=== PATIENT | female | born 1950 | race Caucasian/White ===

== ENCOUNTER → 2017-03-13 | Outpatient (CLI) | payer MEDICARE, BC | LOC: BHSO 14:48 | DX: F33.1 Major depressive disorder, recurrent, moderate (principal) ==

== ENCOUNTER → 2017-03-19 | Outpatient (CLI) | payer MEDICARE, BC | LOC: MC.RAD 14:09 | DX: Z12.31 Encounter for screening mammogram for malignant neoplasm of breast (principal) ==

== ENCOUNTER → 2017-05-07 | Outpatient (CLI) | payer MEDICARE, BC | LOC: COL.PUL 09:36 | DX: R05 Cough (principal); F17.200 Nicotine dependence, unspecified, uncomplicated ==

== ENCOUNTER → 2017-06-04 | Outpatient (CLI) | payer MEDICARE, BC | LOC: BHSO 15:09 | DX: F41.1 Generalized anxiety disorder (principal) ==

== ENCOUNTER → 2017-10-17 | Outpatient (CLI) | payer MEDICARE, BC | LOC: BHSO 14:29 | DX: F41.1 Generalized anxiety disorder (principal) | CPT/HCPCS: G0463 ==

== ENCOUNTER → 2018-02-11 | Outpatient (CLI) | payer MEDICARE, BC | LOC: BHSO 14:46 | DX: F33.41 Major depressive disorder, recurrent, in partial remission (principal) | CPT/HCPCS: G0463 ==

== ENCOUNTER → 2018-08-06 | Outpatient (CLI) | payer MEDICARE, BC | LOC: BHSO 13:13 | DX: F33.42 Major depressive disorder, recurrent, in full remission (principal) | CPT/HCPCS: G0463 ==

== ENCOUNTER → 2018-10-23 | Outpatient (CLI) | payer MEDICARE, BC | LOC: MC.RAD 13:00 | DX: Z12.31 Encounter for screening mammogram for malignant neoplasm of breast (principal) ==

== ENCOUNTER → 2019-02-10 | Outpatient (CLI) | payer MEDICARE, BC | LOC: BHSO 14:39 | DX: F33.42 Major depressive disorder, recurrent, in full remission (principal) | CPT/HCPCS: G0463 ==

== ENCOUNTER → 2019-09-02 | Outpatient (CLI) | payer MEDICARE, BC | LOC: BHSO 13:32 | DX: F33.42 Major depressive disorder, recurrent, in full remission (principal) | CPT/HCPCS: G0463 ==

== ENCOUNTER → 2020-03-02 | Outpatient (CLI) | payer MEDICARE, BC | LOC: BHSO 13:56 | DX: F33.42 Major depressive disorder, recurrent, in full remission (principal) | CPT/HCPCS: G0463 ==

== ENCOUNTER → 2020-08-16 | Outpatient (CLI) | payer MEDICARE, BC | LOC: MC.RAD 12:52 | DX: Z12.31 Encounter for screening mammogram for malignant neoplasm of breast (principal) ==

== ENCOUNTER 2020-11-29 15:30 | Inpatient (IN) | payer MEDICARE, BC ==
[~2020-11-29] VITALS: Ht 160 cm; Wt 87.2 kg
[2020-11-29 15:58] LABS: BASO % 0.4 % (0.0-2.0); GRAN # 4.6 (1.4-6.5); GRAN % 62.6 % (42.2-75.2); HEMOGLOBIN 15.3 g/dl (12.5-16.0); LYMPH # 2.2 (1.2-3.4); LYMPH % 29.4 % (20.0-51.0); MEAN CELL VOLUME 90 fl (80.0-100.0); MEAN CORPUSCULAR HEMOGLOBIN 30 pg (27.0-31.0); MEAN CORPUSCULAR HGB CONC 33 g/dl (33.0-37.0); MEAN PLATELET VOLUME 11.2 fl (7.4-10.4); MONO # 0.5 (0.1-0.6); MONO % 7.3 % (1.7-9.3); PLATELET COUNT 189 K/mm3 (130-400); RED BLOOD COUNT 5.14 M/mm3 (4.10-5.30); REDCELL DISTRIBUTION WIDTH-CV 13.6 % (11.5-14.5)
[2020-11-29 16:04] LABS: INR 1.1 (0.8-3.0)
[2020-11-29 16:07] LABS: PARTIAL THROMBOPLASTIN TIME 33.1 SECONDS (26.0-37.0)
[2020-11-29 16:08] LABS: ALANINE AMINOTRANSFERASE 23 U/L (4-34); ALBUMIN 4.2 gm/dL (3.5-5.0); ALKALINE PHOSPHATASE 51 U/L (50-136); ANION GAP 8 mmol/L (7-16); AST,SGOT 28 U/L (15-37); BILIRUBIN,TOTAL 0.4 mg/dL (0.0-1.0); BLOOD UREA NITROGEN 12 mg/dL (7-17); CALCIUM 9.8 mg/dL (8.4-10.2); CARBON DIOXIDE 28 mmol/L (22-30); CHLORIDE 105 mmol/L (98-107); GLUCOSE 102 mg/dL (74-106); LIPASE 209 U/L (23-300); POTASSIUM 3.9 mmol/L (3.4-5.0); SODIUM 141 mmol/L (137-145); TOTAL PROTEIN 7.3 gm/dL (6.4-8.2)
[2020-11-29 16:20] LABS: TROPONIN-I < 0.012 ng/mL (0.000-0.035)
[2020-11-29] MEDS ORDERED: EFFEXOR 75M75 MG/TAB PO (20:51)
[2020-11-29] MEDS ORDERED: TAZTIA120 (20:52)
[2020-11-29 22:36] LABS: MAGNESIUM 2.1 mg/dL (1.6-2.3)
--- NOTE | 2020-11-29 22:56 | NUR ---
Received report from ED nurse
[2020-11-29] MEDS ORDERED: XANAX 0.5MG0.5 MG PO (23:05)
[2020-11-29 23:07] LABS: TSH w REFLEX 2.27 uIU/mL (0.465-4.680)
--- NOTE | 2020-11-29 23:48 | NUR ---
Patient arrives to ICU room 1 via ED stretcher. Patient is alert and oriented and able to ambulate to ICU bed with standby assistance. Patient is on room air. All initial vital signs within normal limits; patient denies any pain or discomfort. Patient arrives with cardizem infusing to a 20G peripheral in the left wrist at 10 mg/hr or 10 mL/hr. Patient's HR ranging 80-90s in afib. Patient is assisted to toilet with standby assistance. Ambulation tolerated well. Patient currently resting in bed. Bed in lowest position, call light within reach, and all alarms are on. No further needs noted at this time.
--- NOTE | 2020-11-29 23:48 | NUR ---
Patient's belongings include street clothes, a black purse with $170 duran, glasses, a ring, personal cellphone, and a watch she has inside her purse. Patient denies having dentures or hearing aides. Refuses hospital safe when offered.
[2020-11-29 23:56] VITALS: O2SAT 100
[2020-11-29 23:57] VITALS: O2SAT 100
[2020-11-29 23:58] VITALS: O2SAT 99
[2020-11-29 23:59] VITALS: O2SAT 98
[2020-11-30] VITALS (639 sets, daily range): BP systolic 114–152; BP diastolic 69–99; PULSE 57–94; TEMP 97.8–98.5; O2SAT 63–100
[2020-11-30] MEDS ORDERED: ASPIRIN 81M81 MG/TA2 PO (02:30)
[2020-11-30] MEDS ORDERED: EXCEDRIN1 TAB PO (02:30)
[2020-11-30 05:49] LABS: BASO % 0.5 % (0.0-2.0); EOS # 0.2 (0.0-0.7); EOS % 2.4 % (0-4.0); GRAN # 3.7 (1.4-6.5); GRAN % 57.9 % (42.2-75.2); HEMATOCRIT 40.3 % (37.0-47.0); LYMPH % 31.6 % (20.0-51.0); MEAN CELL VOLUME 91 fl (80.0-100.0); MEAN CORPUSCULAR HGB CONC 32 g/dl (33.0-37.0); MEAN PLATELET VOLUME 11.3 fl (7.4-10.4); MONO # 0.5 (0.1-0.6); MONO % 7.1 % (1.7-9.3); PLATELET COUNT 145 K/mm3 (130-400); RED BLOOD COUNT 4.41 M/mm3 (4.10-5.30); REDCELL DISTRIBUTION WIDTH-CV 13.8 % (11.5-14.5)
[2020-11-30 06:04] LABS: MEAN CORPUSCULAR HEMOGLOBIN 29 pg (27.0-31.0)
[2020-11-30 06:06] LABS: ALBUMIN 3.5 gm/dL (3.5-5.0); BILIRUBIN,TOTAL 0.3 mg/dL (0.0-1.0); CALCIUM 8.5 mg/dL (8.4-10.2); CREATININE, serum 0.81 (0.52-1.25); POTASSIUM 3.7 mmol/L (3.4-5.0); TOTAL PROTEIN 6.1 gm/dL (6.4-8.2)
--- NOTE | 2020-11-30 07:15 | NUR ---
Report given to ZACH Acharya.
--- NOTE | 2020-11-30 12:16 | NUR ---
First visit from the ornamental rail installer. No needs right now.
--- NOTE | 2020-11-30 18:16 | NUR ---
1133- TIMEOUT PERFORMED FOR JAMES AND CARDIOVERSION. DR. WEINBERG, HIRAL [place], PUBLIC HEALTH TRAINING ASSISTANT, RN AT BEDSIDE. Cardioversion successful with one shock at 200 Joules.
[2020-12-01] VITALS (543 sets, daily range): BP systolic 98–168; BP diastolic 76–110; PULSE 66–112; TEMP 97.4–98; O2SAT 76–99
--- NOTE | 2020-12-01 06:25 | NUR ---
Pt heart rhythm momentarily changing to A-Fib 110-130bpm after recent ambulation before reverting back to sinus bradycardia/sinus rhythm
[2020-12-01 06:44] LABS: BASO % 0.5 % (0.0-2.0); GRAN % 67.3 % (42.2-75.2); HEMATOCRIT 40.7 % (37.0-47.0); HEMOGLOBIN 12.9 g/dl (12.5-16.0); LYMPH # 1.4 (1.2-3.4); LYMPH % 23.7 % (20.0-51.0); MEAN CELL VOLUME 94 fl (80.0-100.0); MEAN CORPUSCULAR HEMOGLOBIN 30 pg (27.0-31.0); MEAN CORPUSCULAR HGB CONC 32 g/dl (33.0-37.0); MEAN PLATELET VOLUME 11.3 fl (7.4-10.4); MONO # 0.5 (0.1-0.6); MONO % 8.2 % (1.7-9.3); PLATELET COUNT 144 K/mm3 (130-400); RED BLOOD COUNT 4.31 M/mm3 (4.10-5.30); REDCELL DISTRIBUTION WIDTH-CV 13.8 % (11.5-14.5)
[2020-12-01 06:58] LABS: CALCIUM 8.5 mg/dL (8.4-10.2); CREATININE, serum 0.8 (0.52-1.25); POTASSIUM 4.2 mmol/L (3.4-5.0)
--- NOTE | 2020-12-01 07:00 | NUR ---
Report received from ZACH Mejia. Patient currently sleeping. Will continue to monitor.
--- NOTE | 2020-12-01 10:27 | NUR ---
Hop Separator attended clinical rounds with the team. After rounds, SW met with the patient to complete intake. The patient lives independently in [place]. Her son Mark lives with her. The patient has a cane and walker but does not use them. The patient's PCP is Dr. Stanley and patient receives medications [facility] with no difficulties. The patient does not have advanced directives in the EMR but states they are complete and Dr. Stanley has a copy. The patient plans to return home at discharge. HELGA contacted Celestina Lozoya with [employer]. She confirmed that the patient does have advanced directives on file and will fax them to this SW.
--- NOTE | 2020-12-01 11:11 | NUR ---
Test Department Helper received durable power of research attorney for healthcare decisions and a living will declaration for the patient. The DPOAs for healthcare designate her daughter Ericka and her son Mark. The paperwork was placed in the patient's chart.
--- NOTE | 2020-12-01 14:00 | NUR ---
Dr. Rocha called to see if patient can get cleared for discharge. He is upset and states "Who told her she could go home?!" I respond by saying that has been the understanding between the hospitalist and nurses since just after the cardioversion. Dr. Rocha goes in to meet with the patient and informs her that he will be starting some new medications for her low EF and cardiomyopathy and wants to keep her for a couple more days for monitoring. The patient becomes upset and tearful, but agrees to stay. New medication orders received.
--- NOTE | 2020-12-01 14:30 | NUR ---
Dr. Almaguer updated about the plan of care from Dr. Rocha .
--- NOTE | 2020-12-01 16:00 | NUR ---
Report called to ZACH Alberto on medical floor. Patient just went into Afib RVR. Will obtain EKG and call Dr. Rocha for further direction.
--- NOTE | 2020-12-01 16:30 | NUR ---
Dr. Rocha called because patient has gone into AFib RVR. Orders received for IV amio bolus followed by the drip protocol. Patient placed back in IMCU status and transfer to the floor cancelled.
--- NOTE | 2020-12-01 20:45 | NUR ---
Notified by telemetry that patient had a pause on her telemetry reading. When in to check on patient. Patient was lying in bed awake. HR currenlty in the low 100's. When asked how she was feeling patient stated that a few moments ago she felt "funny" but was unable to be more specific. Patient did say she has been anxious and feels the news channel she was watching was upsetting her. Requested her prn xanax to be given. VS currently stable. Obtained EKG which showed A-fib. Dr. Rocha notified instructed to just continue to monitor at this time.
--- NOTE | 2020-12-01 23:05 | NUR ---
Patient noted to have several pauses on telemetry. Nurse at bedside and patient alert and oriented and denies any symptoms. After several pauses HR bradycardic in the 40's and appears to be SR. EKG obtained to confirm. EKG shows A-fib with slow ventricular response. Dena physician called and faxed EKG over for verification. Dr Rocha was also notified of rhythm and rate change. Ok to continue with amiodarone drip per protocol with bradycardia as long as patient's BP is stable and patient is asymptomatic. Will continue to monitor.
[2020-12-02] VITALS (612 sets, daily range): BP systolic 92–125; BP diastolic 56–92; PULSE 53–121; TEMP 97.7–98; O2SAT 75–100
[2020-12-02 05:39] LABS: BASO % 0.3 % (0.0-2.0); GRAN # 5.4 (1.4-6.5); GRAN % 73.1 % (42.2-75.2); HEMATOCRIT 40.2 % (37.0-47.0); HEMOGLOBIN 13.2 g/dl (12.5-16.0); LYMPH # 1.4 (1.2-3.4); LYMPH % 18.8 % (20.0-51.0); MEAN CELL VOLUME 91 fl (80.0-100.0); MEAN CORPUSCULAR HEMOGLOBIN 30 pg (27.0-31.0); MEAN CORPUSCULAR HGB CONC 33 g/dl (33.0-37.0); MONO # 0.6 (0.1-0.6); MONO % 7.5 % (1.7-9.3); PLATELET COUNT 146 K/mm3 (130-400); REDCELL DISTRIBUTION WIDTH-CV 13.8 % (11.5-14.5)
[2020-12-02 05:51] LABS: CALCIUM 8.3 mg/dL (8.4-10.2); CREATININE, serum 0.8 (0.52-1.25); POTASSIUM 4.2 mmol/L (3.4-5.0)
--- NOTE | 2020-12-02 08:00 | NUR ---
Report recieved from overnight RN, all questions answered. Patient found awake alert in bed resting. Oxygen in place at 2L via NC. Denies any pain or discomfort. Report from monitoring that patient HR is dropping into 30's. Sustaining in 50's at this time. Patient denies feeling off or dizzy during that time. Lung sounds diminished, bowel sounds active. Dr. Rocha made aware of HR, states she may have coreg with morning medications. Per MD may resume diet and come off NPO. All safety maintained, call giraldo within reach. Will continue to monitor.
--- NOTE | 2020-12-02 08:35 | NUR ---
Dr. Rocha called to inform of increased heart rate of 113 afib. Also made aware of increased BP. No new orders recieved. Will continue to monitor.
--- NOTE | 2020-12-02 09:43 | NUR ---
NOTED PT WAS IN AFIB 120s AND AT 0941) TELEMETRY TOLD RN THAT PT IS SHOWING ASYSTOLE. BY THE TIME RN AND MARKIE, RN ENTERED ROOM, MONITOR SHOWED HR 29. PT AROUSES STARTLED WHEN SPOKEN TO. HR INCREASES BACK INTO AFIB 100-120s. [address] BLANCHARD OF INCIDENT. PHYSICIAN STATES TO STOP AMIO GTT AT THIS TIME AND WILL BE BY SHORTLY TO SEE PT TO DISCUSS POC.
--- NOTE | 2020-12-02 09:59 | NUR ---
Steam Pipe Fitter at bedside speaking with patient. States patient will need to go for a pacemaker this afternoon. Patient has maintained NPO status. Will conitnue to monitor.
--- NOTE | 2020-12-02 11:30 | NUR ---
Choir Member attended clinical rounds with the team. The patient will have a pacemaker placed this day.
--- NOTE | 2020-12-02 13:57 | NUR ---
Patient brought back from bundle tier and labeler via bed. Placed on monitors, HR elevated afib. Pacemaker placed to left chest. Bandage clean dry intact. Left arm in sling. Patient denies pain or nausea. Amiodarone drip restarted per MD orders. Infusing without difficulty. Patient states she is thirsty and would also like a meal tray for lunch. Will continue to monitor.
--- NOTE | 2020-12-02 20:00 | NUR ---
Patient alert and watching TV. Denies any shortness of breath. Reports very mild tenderness around the pacemaker incision site. Site clean, dry and intact. Patient freqently moving arm in and out of arm sling. Reminded to try to keep arm as still as possible to prevent any dislodging of pacer wires. Denies any other needs or complaints at this time. Will continue to monitor.
[2020-12-03] VITALS (431 sets, daily range): BP systolic 90–116; BP diastolic 52–90; PULSE 60–123; TEMP 97.4–98; O2SAT 75–100
[2020-12-03 05:49] LABS: BASO % 0.5 % (0.0-2.0); GRAN # 5.8 (1.4-6.5); GRAN % 70.1 % (42.2-75.2); HEMATOCRIT 42.7 % (37.0-47.0); HEMOGLOBIN 14.1 g/dl (12.5-16.0); LYMPH # 1.7 (1.2-3.4); LYMPH % 20.9 % (20.0-51.0); MEAN CELL VOLUME 91 fl (80.0-100.0); MEAN CORPUSCULAR HEMOGLOBIN 30 pg (27.0-31.0); MEAN CORPUSCULAR HGB CONC 33 g/dl (33.0-37.0); MEAN PLATELET VOLUME 11.5 fl (7.4-10.4); MONO # 0.7 (0.1-0.6); MONO % 8.3 % (1.7-9.3); PLATELET COUNT 149 K/mm3 (130-400); RED BLOOD COUNT 4.71 M/mm3 (4.10-5.30); REDCELL DISTRIBUTION WIDTH-CV 13.8 % (11.5-14.5)
[2020-12-03 06:02] LABS: CALCIUM 8.5 mg/dL (8.4-10.2); CREATININE, serum 0.89 (0.52-1.25); POTASSIUM 3.8 mmol/L (3.4-5.0)
--- NOTE | 2020-12-03 09:01 | NUR ---
PT is resting in bed this morning and states she is tired. Pt has no other complaints. Heart is showing A fib, bouncing from 90-110s. PT takes morning pills with water with no issue. Lungs are clear. PT has call light will call with needs.
--- NOTE | 2020-12-03 16:02 | NUR ---
PT moved to room 319 via wheelchair without incident. PT helped to bed by ZACH Mendoza who has assumed care at this time.
--- NOTE | 2020-12-03 18:09 | NUR ---
Pt arrived to the floor into room 318, she is A/O x4. She is up independently in the room. Denies pain. LUE restrictions reviewed with patient. Educated patient on medications, handouts given. HR irregular, Lungs CTA. No edema present. LFA IV intact. Call light within reach.
[2020-12-04 04:28] VITALS: BP 90/47; PULSE 60; TEMP 98.2
[2020-12-04 08:35] VITALS: BP 105/50; PULSE 60; TEMP 97.7
--- NOTE | 2020-12-04 09:45 | NUR ---
Pt assessment complete. Pt is sitting up in chair. She is A/O x4. Her breathing is even and unlabored on RA, does get SOB on exertion. She denies any pain. Site to L chest CDI, no hematoma visualized. LUE restrictions reviewed with patient. Educated on the side effects of afib and infection. No further needs. Call light within reach.
[2020-12-04] MEDS ORDERED: CEPHALEXIN500 M1 PO (09:50)
[2020-12-04] MEDS ORDERED: COREG 6.256.25 MG/TA PO (09:51)
[2020-12-04] MEDS ORDERED: CORDARONE200 MG/TAB PO (09:51)
[2020-12-04] MEDS ORDERED: ENTRESTO 24 MG1 EACH PO (09:51)
[2020-12-04] MEDS ORDERED: ELIQUIS 5MG PO (09:51)
[2020-12-04] MEDS ORDERED: LASIX 20MG TABL20 MG PO (09:52)
--- NOTE | 2020-12-04 11:35 | NUR ---
Discharge paperwork and instructions reviewed with patient. All questions answered at this time. IV removed by student. Pt wheeled out of facility at this time.
== END 2020-12-04 11:35 | disposition home or self-care (01) | DRG 243 ==
LOC: COL.ER 15:30 → ICU 19:08 → COL.ER 19:08 → ICU 12-03 10:05 → MEDICAL 12-03 15:41
PROVIDERS: Emergency Medicine; Student in an Organized Health Care Education/Training Program; ADMIT Student in an Organized Health Care Education/Training Program
PROC: 5A2204Z Restoration of Cardiac Rhythm, Single (ICD-10-PCS; 2020-11-30)
PROC: 0JH606Z Insertion of Pacemaker, Dual Chamber into Chest Subcutaneous Tissue and Fascia, Open Approach (ICD-10-PCS; principal; 2020-12-02)
PROC: 02H63JZ Insertion of Pacemaker Lead into Right Atrium, Percutaneous Approach (ICD-10-PCS; 2020-12-02)
PROC: 02HK3JZ Insertion of Pacemaker Lead into Right Ventricle, Percutaneous Approach (ICD-10-PCS; 2020-12-02)
DX: I49.5 Sick sinus syndrome (principal); I50.20 Unspecified systolic (congestive) heart failure; Q21.1 Atrial septal defect; I48.91 Unspecified atrial fibrillation; F41.9 Anxiety disorder, unspecified; F32.9 Major depressive disorder, single episode, unspecified; F17.210 Nicotine dependence, cigarettes, uncomplicated; Z20.822 Contact with and (suspected) exposure to COVID-19
CPT/HCPCS: 99223-AI; 99232-AI; 99233-AI; 99239; C1769; C1785; C1894; C1898; J0282; J0690; J1160; J2250; J2704; J3010; J7030; J7060

== ENCOUNTER 2020-12-06 12:21 | Emergency (ER) | payer MEDICARE, BC ==
[~2020-12-06] VITALS: Ht 160 cm; Wt 88.6 kg
[~2020-12-06 12:21] MED LIST: ASPIRIN 81M81 MG/TA2 PO; CEPHALEXIN500 M1 PO; CORDARONE200 MG/TAB PO; COREG 6.256.25 MG/TA PO; EFFEXOR 75M75 MG/TAB PO; ELIQUIS 5MG PO; ENTRESTO 24 MG1 EACH PO; EXCEDRIN1 TAB PO; LASIX 20MG TABL20 MG PO; TAZTIA120; XANAX 0.5MG0.5 MG PO
[2020-12-06 12:52] LABS: ALANINE AMINOTRANSFERASE 99 U/L (4-34); ALBUMIN 3.4 gm/dL (3.5-5.0); ALKALINE PHOSPHATASE 58 U/L (50-136); ANION GAP 16 mmol/L (7-16); AST,SGOT 92 U/L (15-37); BASO % 0.1 % (0.0-2.0); BILIRUBIN,TOTAL 1.1 mg/dL (0.0-1.0); BLOOD UREA NITROGEN 37 mg/dL (7-17); CALCIUM 7.8 mg/dL (8.4-10.2); CARBON DIOXIDE 20 mmol/L (22-30); CREATININE, serum 2.97 (0.52-1.25); GLUCOSE 134 mg/dL (74-106); GRAN # 11.2 (1.4-6.5); GRAN % 80.5 % (42.2-75.2); LYMPH # 1.1 (1.2-3.4); LYMPH % 8.1 % (20.0-51.0); MEAN CELL VOLUME 89 fl (80.0-100.0); MEAN CORPUSCULAR HGB CONC 34 g/dl (33.0-37.0); MEAN PLATELET VOLUME 12.2 fl (7.4-10.4); MONO # 1.5 (0.1-0.6); MONO % 10.5 % (1.7-9.3); PLATELET COUNT 141 K/mm3 (130-400); POTASSIUM 3.9 mmol/L (3.4-5.0); RED BLOOD COUNT 3.27 M/mm3 (4.10-5.30); REDCELL DISTRIBUTION WIDTH-CV 13.7 % (11.5-14.5); SODIUM 125 mmol/L (137-145); TOTAL PROTEIN 5.9 gm/dL (6.4-8.2)
[2020-12-06 12:53] LABS: INR 2.4 (0.8-3.0); PROTHROMBIN TIME 27.5 SECONDS (9.7-12.8)
[2020-12-06 12:54] LABS: HEMOGLOBIN 9.8 g/dl (12.5-16.0); MEAN CORPUSCULAR HEMOGLOBIN 30 pg (27.0-31.0)
[2020-12-06 12:55] VITALS: BP 146/95; PULSE 63
[2020-12-06 13:02] LABS: CHLORIDE 89 mmol/L (98-107)
[2020-12-06 13:04] LABS: TROPONIN-I < 0.012 ng/mL (0.000-0.035)
--- NOTE | 2020-12-06 14:10 | NUR ---
This RN calling report to ZACH Burton at [facility]. Pt departing Vending Machine Filler at this time with EMS. Pt stable at this time with HR 75 SR, BP 155/89, and O2 sat 92-94% on 15L via oxymask. Pt A&Ox3 at this time. Levophed gtt at 0.1 mcg/kg/min and Vanco 1gm at 250 mL/hr infusing on departure.
== END 2020-12-06 14:14 | disposition short-term general hospital (02) ==
LOC: COL.ER 12:21
PROVIDERS: Emergency Medicine
DX: I31.2 Hemopericardium, not elsewhere classified (principal); I31.4 Cardiac tamponade; F17.210 Nicotine dependence, cigarettes, uncomplicated; Z79.01 Long term (current) use of anticoagulants; Z79.82 Long term (current) use of aspirin
CPT/HCPCS: J3370; J7030; J7050; J7060

== ENCOUNTER → 2021-09-07 | Outpatient (CLI) | payer MEDICARE, BC | LOC: COL.RAD 09:33 | DX: K80.20 Calculus of gallbladder without cholecystitis without obstruction (principal) ==

== ENCOUNTER 2021-09-19 07:13 | Inpatient (IN) | payer MEDICARE, BC ==
[2021-09-19] VITALS (11 sets, daily range): BP systolic 147–183; BP diastolic 71–100; PULSE 62–79; TEMP 97.3–98.9
[~2021-09-19] VITALS: Ht 157.5 cm; Wt 75.6 kg
[2021-09-19] MEDS ORDERED: TYLENOL 500MG500 MG PO (08:05)
[2021-09-19] MEDS ORDERED: PACERONE100 MG PO (08:06)
[2021-09-19] MEDS ORDERED: ZIAC 10/6.25M1 UDTAB PO (08:09)
[2021-09-19] MEDS ORDERED: XARELTO20 MG PO (08:10)
--- NOTE | 2021-09-19 13:15 | NUR ---
arrived on unit per cart, assisted with moving over to bed, is awake and alert but sleepy, abdomen with 3 sites covered with bandaids that are CD&I and 4th site where drain is located, drain compressed to suction with bloody drainage in bulb, full assessment completed, see interventions for further info, denies needs at this time, O2 on at 2L?NC, daughter at bedside
--- NOTE | 2021-09-19 13:30 | NUR ---
O2 sat on 2L is 100%, O2 down to 1L
--- NOTE | 2021-09-19 14:00 | NUR ---
rests between checks, continues to c/o pain on right side, medicated with hydrocodone 5mg 1 tab, drain remains compressed and dressings CD&I, sates shoulder pain/discomfort is better, takes sips of water and tolerates well, will monitor BP and see if decreases after pain med given
--- NOTE | 2021-09-19 14:30 | NUR ---
continues to c/o discomfort, explained to her it has only been about 20 minutes since was given pain pill, will wait a while longer and reassess closer to 1 hour, verbalizes understanding
--- NOTE | 2021-09-19 14:54 | NUR ---
continues to c/o pain, grimacing and some moaning, medicated with morphine 2mg slow IV
--- NOTE | 2021-09-19 15:26 | NUR ---
appears now to be sleeping, eyes closed, no grimacing noted and resp quiet and easy
--- NOTE | 2021-09-19 16:00 | NUR ---
resting in bed, states pain is better but still sore on the right side, offcered jello but declines at this time, denies urge to void
--- NOTE | 2021-09-19 17:00 | NUR ---
more awake now, continues to c/o pain on right side, Dr armas was in to see patient and informed of her BP, verified time meds taken and will adjust
--- NOTE | 2021-09-19 17:59 | NUR ---
was assisted up to bathroom and tried for approx 15 minutes and felt the urge to void but was unable, will bladder scan, clear liquid tray ordered
--- NOTE | 2021-09-19 18:07 | NUR ---
bladder scan revealed approx 337ml urine in bladder, will continue to monitor
--- NOTE | 2021-09-19 18:45 | NUR ---
bedside shift report given to ZACH Ying
--- NOTE | 2021-09-19 22:45 | NUR ---
Pt. sitting up in bed. Pt. is A&OX3, assessment complete. IV to rt. hand patent, IV fluids per per orders. NAOMY to abd. with bloody drainage noted. Abd. incisions well approximated. Pt. reports mild pain at a 4 on pain scale to RUQ. Pt. does not want the [place]. Dr. Clay notified, New orders received. Pt. denies furher needs, call light within reach.
[2021-09-20 03:58] VITALS: BP 149/70; PULSE 61; TEMP 98.2
[2021-09-20 06:26] LABS: HEMATOCRIT 38.1 % (37.0-47.0); HEMOGLOBIN 12.5 g/dl (12.5-16.0); MEAN CELL VOLUME 93 fl (80.0-100.0); MEAN CORPUSCULAR HEMOGLOBIN 30 pg (27-31); MEAN CORPUSCULAR HGB CONC 33 g/dl (33.0-37.0); MEAN PLATELET VOLUME 10.7 fl (7.4-10.4); PLATELET COUNT 198 K/mm3 (130-400); RED BLOOD COUNT 4.12 M/mm3 (4.10-5.30); REDCELL DISTRIBUTION WIDTH-CV 14.6 % (11.5-14.5)
[2021-09-20 06:50] LABS: ALBUMIN 3.5 gm/dL (3.4-4.8); CALCIUM 8.9 mg/dL (8.4-10.2); CREATININE, serum 0.79 mg/dL (0.57-1.11); POTASSIUM 4.1 mmol/L (3.5-4.5)
[2021-09-20 07:14] LABS: BILIRUBIN,TOTAL 0.9 mg/dL (0.2-1.2)
--- NOTE | 2021-09-20 07:28 | NUR ---
REPORT RECEIVED FROM MARQUIS SERRANO, PT RESTING IN BED DENIES ANY NEEDS AT THIS TIME. CALL LIGHT WITHIN REACH
[2021-09-20 08:40] VITALS: BP 111/55; PULSE 63; TEMP 97.8
[2021-09-20 12:01] VITALS: BP 155/74; PULSE 66; TEMP 97.4
--- NOTE | 2021-09-20 15:52 | NUR ---
First visit from the manufacturer's representative. No needs right now.
[2021-09-20 16:00] VITALS: BP 131/67; PULSE 71; TEMP 98.1
[2021-09-20 19:51] VITALS: BP 108/72; PULSE 65; TEMP 98
--- NOTE | 2021-09-20 20:15 | NUR ---
Pt. sitting up in bed. Pt. is A&OX3, assessment complete. INT to rt. hand patent. Abd. incisions x3, well approximated. NAOMY noted, dressing with minimal drainage noted, NAOMY has minimal bloody drainage at this time. Pt. denies pain or other needs, call light within reach
[2021-09-21 03:14] VITALS: BP 133/60; PULSE 58; TEMP 98
[2021-09-21 06:14] LABS: HEMOGLOBIN 11.2 g/dl (12.5-16.0); MEAN CELL VOLUME 91 fl (80.0-100.0); MEAN CORPUSCULAR HEMOGLOBIN 30 pg (27-31); MEAN CORPUSCULAR HGB CONC 33 g/dl (33.0-37.0); MEAN PLATELET VOLUME 10.7 fl (7.4-10.4); PLATELET COUNT 152 K/mm3 (130-400); RED BLOOD COUNT 3.71 M/mm3 (4.10-5.30); REDCELL DISTRIBUTION WIDTH-CV 14.6 % (11.5-14.5)
[2021-09-21 06:23] LABS: ALBUMIN 3.4 gm/dL (3.4-4.8); BILIRUBIN,TOTAL 1.3 mg/dL (0.2-1.2); CALCIUM 8.6 mg/dL (8.4-10.2); CREATININE, serum 0.79 mg/dL (0.57-1.11); POTASSIUM 3.8 mmol/L (3.5-4.5)
[2021-09-21 06:25] LABS: HEMATOCRIT 33.7 % (37.0-47.0)
--- NOTE | 2021-09-21 07:06 | NUR ---
appears to be dozing, bedside shift report received from ZACH Ying
[2021-09-21 07:37] VITALS: BP 139/69; PULSE 62; TEMP 97.7
--- NOTE | 2021-09-21 07:50 | NUR ---
resting in bed, c/o some achiness and medicated with tylenol 650mg po per her request,
--- NOTE | 2021-09-21 08:30 | NUR ---
Dr. Jaimes was in to see patient and drain removed, site covered with gauze, bandaids over 3 lap sites removed, sites are CD&I with some brusing noted, full assessment completed, see interventions for further info
--- NOTE | 2021-09-21 09:17 | NUR ---
SW met with the patient to discuss discharge plan. The patient lives in [place] with her son, Mark ([phone]). She reports independence with ADLs and has a cane and walker, if needed. The patient's PCP is Dr. Alessio Stanley and she receives her medications from [place] [facility]. She reports no difficulties obtaining her meds. The patient's DPOA-HC is in EMR and it designates her daughter, Ericka (ph#[phone]). Ericka lives in [place], but the patient reports that Ericka is back here now visiting until later today or tomorrow. The patient plans on returning home with her family upon discharge. No additional needs at this time. *Discharge plan: home with family*
--- NOTE | 2021-09-21 10:15 | NUR ---
resting in bed, offered shower but declines and will take after she goes home
[2021-09-21 11:54] VITALS: BP 103/57; PULSE 61; TEMP 97.6
--- NOTE | 2021-09-21 13:05 | NUR ---
discharge instructions given to patient and her daughter, verbalizes understanding
--- NOTE | 2021-09-21 13:11 | NUR ---
discharged per WC
== END 2021-09-21 13:11 | disposition home or self-care (01) | DRG 418 ==
LOC: SDCO 07:13 → SURG 13:15 → SDCO 14:30 → SURG 14:38
PROVIDERS: ADMIT Surgery
PROC: 0FN44ZZ Release Gallbladder, Percutaneous Endoscopic Approach (ICD-10-PCS; 2021-09-19)
PROC: 0FT44ZZ Resection of Gallbladder, Percutaneous Endoscopic Approach (ICD-10-PCS; principal; 2021-09-19 09:30)
DX: K80.10 Calculus of gallbladder with chronic cholecystitis without obstruction (principal); I48.20 Chronic atrial fibrillation, unspecified; K82.8 Other specified diseases of gallbladder; F41.1 Generalized anxiety disorder; I10 Essential (primary) hypertension; F32.A Depression, unspecified; Z79.01 Long term (current) use of anticoagulants
CPT/HCPCS: J0330; J0360; J0690; J1100; J1170; J1885; J2270; J2405; J2704; J3010; J7120

== ENCOUNTER → 2022-12-12 | Outpatient (CLI) | payer MEDICARE, BC ==
[~2022-12-12] MED LIST changes: +PACERONE100 MG PO; +TYLENOL 500MG500 MG PO; +XARELTO20 MG PO; +ZIAC 10/6.25M1 UDTAB PO
== END ==
LOC: COL.RAD 09:51
DX: Z12.2 Encounter for screening for malignant neoplasm of respiratory organs (principal); J43.9 Emphysema, unspecified; K76.0 Fatty (change of) liver, not elsewhere classified; K44.9 Diaphragmatic hernia without obstruction or gangrene; F17.200 Nicotine dependence, unspecified, uncomplicated

== ENCOUNTER → 2023-12-16 | Outpatient (CLI) | payer MEDICARE, BC | LOC: COL.RAD 09:37 | DX: Z12.2 Encounter for screening for malignant neoplasm of respiratory organs (principal); F17.210 Nicotine dependence, cigarettes, uncomplicated ==

== ENCOUNTER → 2024-01-17 | Outpatient (CLI) | payer MEDICARE, BC | LOC: MC.RAD 10:31 | DX: Z12.31 Encounter for screening mammogram for malignant neoplasm of breast (principal) ==